=== PATIENT | male | born 1980 | race Two or more races ===

== ENCOUNTER 2018-10-13 10:00 | Emergency (ER) | payer OTHER ==
[~2018-10-13] VITALS: Ht 172.7 cm; Wt 82.0 kg
[2018-10-13 10:08] VITALS: BP 143/98
== END 2018-10-13 12:38 | disposition home or self-care (01) ==
LOC: ED 12:32
DX: Z00.00 Encounter for general adult medical examination without abnormal findings (principal); I10 Essential (primary) hypertension; Z87.891 Personal history of nicotine dependence
CPT/HCPCS: 71045; 99283